=== PATIENT | male | born 1950 | race Caucasian/White ===

== ENCOUNTER → 2018-08-15 | Outpatient (CLI) | payer OTHER, MEDICARE | LOC: BHFA 10:00 | PROVIDERS: ATTEND Internal Medicine | DX: R01.1 Cardiac murmur, unspecified (principal) ==

== ENCOUNTER → 2018-10-07 | Outpatient (CLI) | payer OTHER, MEDICARE | LOC: BMCIMAGING 12:16 | PROVIDERS: ATTEND Emergency Medicine | DX: R05 Cough (principal) ==